=== PATIENT | female | born 1995 | race Caucasian/White ===

== ENCOUNTER 2021-12-24 23:13 | Emergency (ER) | payer OTHER, SELFPAY ==
[2021-12-24 23:45] VITALS: BP 156/92; PULSE 101; RESP 16; TEMP 37.1; O2SAT 96; BMI 52.9
[2021-12-25 01:53] LABS: Appearance Urine HAZY; Color Urine STRAW; Glucose Urine UA >=1000 MG/DL (NEG); Leukocyte Esterase Urine TRACE (NEG); Nitrite Urine NEG (NEG); PH 5.5 (5.0-8.0); Specific Gravity - Urine 1.015 (1.005-1.025); UACC Culture Trigger NO; Urine Blood 1+ (NEG); Urine Ketones 15 MG/DL (NEG); Urine Protein NEG (NEG-TRACE)
[2021-12-25 01:55] LABS: UPreg QC Valid YES; Urine Pregnancy NEGATIVE (NEGATIVE)
[2021-12-25 01:59] LABS: Bacteria Urine 2+ /LPF; RBC Urine 0-2 /HPF (0); Squamous Epithelial Cell Urine 2+ /LPF; UACC CULT YES
[2021-12-25 02:00] LABS: Calcium Phosphate Crystals Ur TRACE /LPF
[2021-12-25] MEDS: Fluconazole 150 MG TABLET PO (02:31)
[2021-12-25] MEDS: Lidocaine HCl 2 % Urojet 10 ML JEL.PF.APP TOPICAL (02:31)
[2021-12-25 02:35] LABS: MANUAL DIFF FLAG NO
[2021-12-25 02:36] VITALS: BP 152/91; PULSE 97; RESP 16; O2SAT 97
[2021-12-25 02:36] LABS: Basophils Percent Auto 0.4 % (0-2); Eosinophils Absolute Auto 0.2 X10*3/uL (0.0-0.4); Eosinophils Percent Auto 2.3 % (0-4); Hematocrit 45.6 % (37.0-47.0); Hemoglobin 15.8 g/dl (12.0-16.0); Imm Gran Abs Auto 0.05 X10*3/uL (0.00-0.03); Imm Gran Pct Auto 0.6 % (0.0-0.4); Lymphocytes Absolute Auto 2.4 X10*3/uL (1.2-4.9); Lymphocytes Percent Auto 31.2 % (20-40); Mean Corpuscular HGB Conc 34.6 g/dl (31.0-35.0); Mean Corpuscular Hemoglobin 28.8 pg (27.0-33.0); Mean Corpuscular Volume 83.1 fL (80.0-98.0); Monocytes Absolute Auto 0.7 X10*3/uL (0.1-1.2); Monocytes Percent Auto 8.8 % (2-11); Neutrophils Absolute Auto 4.4 x10*3/uL (2.0-8.3); Neutrophils Percent Auto 56.7 % (45-73); Platelet Count 231 X10*3/uL (160-400); Red Blood Count 5.49 X10*6/uL (4.20-5.50); Red Cell Distribution Width 12.5 % (11.0-16.0); White Blood Count 7.8 X10*3/uL (4.8-10.8)
[2021-12-25 02:42] LABS: Acetone, serum QL Negative (Negative)
[2021-12-25 02:56] LABS: Alanine Aminotransferase 46 U/L (0-31); Albumin Level 4.4 g/dL (3.5-5.0); Alkaline Phosphatase 130 U/L (39-117); Anion Gap 14 (12-20); Aspartate Amino Transferase 43 U/L (5-31); Bilirubin Total 0.5 mg/dL (0.0-1.0); Blood Urea Nitrogen 10 mg/dL (9-16); Calcium 10.3 mg/dL (8.4-10.2); Carbon Dioxide 26 mmol/L (22-29); Chloride 98 mmol/L (96-108); Creatinine Clr Calc Pharmacy 109.1; Estimated Glomerular Filt Rate > 60; Glucose Random 386 mg/dL (60-115); Potassium 4.2 mmol/L (3.3-5.1); Sodium 134 mmol/L (135-145); Total Protein 8.6 g/dL (6.5-8.0)
--- NOTE | 2021-12-25 03:06 | ED.FEMALEGU ---
HPI - Female Genitourinary General Chief complaint: Urogenital-Female Stated complaint: vaginal pain, burning sensation Time Seen by Provider: 12/24/21 23:55 Source: patient Mode of arrival: ambulatory History of Present Illness HPI Narrative: 26-year-old female without significant past medical history presents with 1 week of increasing itching and discharge from her ?private areas?. Patient states that now it lepe badly when she urinates and her entire gentle area itches and is very painful. Related Data Previous Rx's Medication Instructions Recorded fluconazole 150 mg tablet 150 mg PO Q3D #2 tab 12/25/21 (Diflucan) metformin 500 mg tablet 500 mg PO DAILY #30 tab 12/25/21 Allergies Allergy/AdvReac Type Severity Reaction Status Date / Time amoxicillin [AMOXICILLIN] Allergy Unknown RASH Verified 09/13/20 15:38 Sulfa (Sulfonamide Allergy Unknown angeioedema/hives, Unverified 11/25/19 00:00 Antibiotics) rash sulfamethoxazole Allergy Unknown HIVES, Verified 09/13/20 15:39 [From BACTRIM] angioadema trimethoprim [From BACTRIM] Allergy Unknown HIVES, Verified 09/13/20 15:39 angioedema Review of Systems Review of Systems: Pertinent positives and negatives as stated in HPI 10 point review of systems is otherwise negative. PMFSH Past Medical History Source: nursing notes reviewed Surgical History No pertinent past surgical history Family History Family History Father No problems noted. Mother Diabetes mellitus Brother No problems noted. Brother No problems noted. Brother No problems noted. Brother No problems noted. Sister No problems noted. Social History Social History Advance Directives: No Advance Directives Information Provided: Yes Physical Exam Vital Signs: Vital Signs: Last Vital Signs Temp 98.7 F 12/24/21 23:45 Pulse 97 12/25/21 02:36 Resp 16 12/25/21 02:36 BP 152/91 H 12/25/21 02:36 Pulse Ox 97 12/25/21 02:36 BMI result Body Mass Index 52.9 VITAL SIGNS: Reviewed. GENERAL: Well developed, well nourished, hirsutism noted, in moderate distress. HEAD: Normocephalic/atraumatic EYES: PERRLA, EOMI EARS: Ext canals without abnormality OROPHARYNX: no oral lesions noted, posterior pharynx clear LUNGS: Normal breath sounds. SpO2<97> CARDIOVASCULAR: Regular rate and rhythm without noted murmurs ABDOMEN: Soft, non-tender, non-distended with bowel sounds. : Large amount of chunky white discharge covering all labia and into the introitus, extends onto bilateral groin creases. MUSCULOSKELETAL: No tenderness, deformities, or effusions noted on gross inspection. EXTREMITIES: No cyanosis, clubbing or edema. SKIN: Inspection of the skin reveals no rashes NEUROLOGIC: Alert and oriented x 4. Strength and sensation to light touch were grossly intact x 4. Course Course Course Narrative: 26-year-old female with history and clinical presentation consistent with significant vaginal candidiasis raising concern for underlying diabetes and on POC is noted to be over 300. Lab work was drawn and on review of all investigations patient is noted to be hyperglycemic but not in DKA or HHS. She was provided with a dose of Diflucan here in the emergency room as well as being provided with topical lidocaine for pain control. She will be discharged with metformin as well as remaining course of Diflucan. MDM - Female Genitourinary Lab Data Result diagrams: 12/25/21 02:30 12/25/21 02:30 Labs: Lab Results 12/25/21 12/25/21 12/25/21 Range/Units 01:43 01:43 02:30 WBC 7.8 (4.8-10.8) X10*3/uL RBC 5.49 (4.20-5.50) X10*6/uL Hgb 15.8 (12.0-16.0) g/dl Hct 45.6 (37.0-47.0) % MCV 83.1 (80.0-98.0) fL MCH 28.8 (27.0-33.0) pg MCHC 34.6 (31.0-35.0) g/dl RDW 12.5 (11.0-16.0) % Plt Count 231 (160-400) X10*3/uL MPV 13.0 H (9.4-12.3) fL Immature Gran % (Auto) 0.6 H (0.0-0.4) % Neut % (Auto) 56.7 (45-73) % Lymph % (Auto) 31.2 (20-40) % [place] % (Auto) 8.8 (2-11) % Eos % (Auto) 2.3 (0-4) % Baso % (Auto) 0.4 (0-2) % Lymph # (Auto) 2.4 (1.2-4.9) X10*3/uL [place] # (Auto) 0.7 (0.1-1.2) X10*3/uL Eos # (Auto) 0.2 (0.0-0.4) X10*3/uL Baso # (Auto) 0.0 (0.0-0.2) X10*3/uL Abs Immat Gran (auto) 0.05 H (0.00-0.03) X10*3/uL Absolute Neuts (auto) 4.4 (2.0-8.3) x10*3/uL Absolute Nucleated RBC 0.000 (0.0-0.012) X10*3/uL Nucleated RBC % (auto) 0.0 (0.0-0.2) /100WBC Sodium (135-145) mmol/L Potassium (3.3-5.1) mmol/L Chloride (96-108) mmol/L Carbon Dioxide (22-29) mmol/L Anion Gap (12-20) BUN (9-16) mg/dL Creatinine (0.5-1.4) mg/dL Estim Creat Clear Calc Estimated GFR Random Glucose (60-115) mg/dL Calcium (8.4-10.2) mg/dL Total Bilirubin (0.0-1.0) mg/dL AST (5-31) U/L ALT (0-31) U/L Alkaline Phosphatase (39-117) U/L Total Protein (6.5-8.0) g/dL Albumin (3.5-5.0) g/dL Urine Color STRAW Urine Appearance HAZY Urine pH 5.5 (5.0-8.0) Ur Specific [place] 1.015 (1.005-1.025) Urine Protein NEG (NEG-TRACE) MG/DL Urine Glucose (UA) >=1000 H (NEG) MG/DL Urine Ketones 15 (NEG) MG/DL Urine Blood 1+ H (NEG) Urine Nitrite NEG (NEG) Ur Leukocyte Esterase TRACE H (NEG) Urine RBC 0-2 (0) /HPF Urine WBC 15-29 H (0-4) /HPF Ur Squamous Epith Cells 2+ /LPF Calcium Phosphate Cryst TRACE /LPF Urine Bacteria 2+ /LPF Urine Yeast 1+ /HPF Urine Test NEGATIVE (NEGATIVE) Acetone, Qual (Negative) 12/25/21 12/25/21 Range/Units 02:30 02:30 WBC (4.8-10.8) X10*3/uL RBC (4.20-5.50) X10*6/uL Hgb (12.0-16.0) g/dl Hct (37.0-47.0) % MCV (80.0-98.0) fL MCH (27.0-33.0) pg MCHC (31.0-35.0) g/dl RDW (11.0-16.0) % Plt Count (160-400) X10*3/uL MPV (9.4-12.3) fL Immature Gran % (Auto) (0.0-0.4) % Neut % (Auto) (45-73) % Lymph % (Auto) (20-40) % [place] % (Auto) (2-11) % Eos % (Auto) (0-4) % Baso % (Auto) (0-2) % Lymph # (Auto) (1.2-4.9) X10*3/uL [place] # (Auto) (0.1-1.2) X10*3/uL Eos # (Auto) (0.0-0.4) X10*3/uL Baso # (Auto) (0.0-0.2) X10*3/uL Abs Immat Gran (auto) (0.00-0.03) X10*3/uL Absolute Neuts (auto) (2.0-8.3) x10*3/uL Absolute Nucleated RBC (0.0-0.012) X10*3/uL Nucleated RBC % (auto) (0.0-0.2) /100WBC Sodium 134 L (135-145) mmol/L Potassium 4.2 (3.3-5.1) mmol/L Chloride 98 (96-108) mmol/L Carbon Dioxide 26 (22-29) mmol/L Anion Gap 14 (12-20) BUN 10 (9-16) mg/dL Creatinine 0.98 (0.5-1.4) mg/dL Estim Creat Clear Calc 109.1 Estimated GFR > 60 Random Glucose 386 H* (60-115) mg/dL Calcium 10.3 H (8.4-10.2) mg/dL Total Bilirubin 0.5 (0.0-1.0) mg/dL AST 43 H (5-31) U/L ALT 46 H (0-31) U/L Alkaline Phosphatase 130 H (39-117) U/L Total Protein 8.6 H (6.5-8.0) g/dL Albumin 4.4 (3.5-5.0) g/dL Urine Color Urine Appearance Urine pH (5.0-8.0) Ur Specific [place] (1.005-1.025) Urine Protein (NEG-TRACE) MG/DL Urine Glucose (UA) (NEG) MG/DL Urine Ketones (NEG) MG/DL Urine Blood (NEG) Urine Nitrite (NEG) Ur Leukocyte Esterase (NEG) Urine RBC (0) /HPF Urine WBC (0-4) /HPF Ur Squamous Epith Cells /LPF Calcium Phosphate Cryst /LPF Urine Bacteria /LPF Urine Yeast /HPF Urine Test (NEGATIVE) Acetone, Qual Negative (Negative) Discharge Plan Discharge Clinical Impression: Candidiasis of vulva and vagina, Hyperglycemia, Diabetes mellitus, new onset Patient Disposition: Home, Self-Care Instructions: Bacterial Vaginosis (ED), Type 2 Diabetes in Adults: New Diagnosis (ED), Yeast Infection (ED), Diabetes and Nutrition (ED), Diabetes and Exercise (ED) Additional Instructions: 1. You have diabetes and should set up an appointment with a primary care provider as soon as possible for continued care. 2. You have been started on a medication for your diabetes as well as being provided with additional information regarding diabetes. 3. A medication has been sent to your pharmacy for continued treatment of your yeast infection. You should combine this with [id number] Monistat, that comes as a cream, and use as directed(recommend 7 day version). Prescriptions: New fluconazole [Diflucan] 150 mg tablet 150 mg PO Q3D Qty: 2 0RF metformin 500 mg tablet 500 mg PO DAILY Qty: 30 0RF Stand Alone Forms: Work/School Release
[2021-12-25 03:19] LABS: CT PCR DETECTED (Not Detect.); NG PCR NOT DETECTED (Not Detect.)
[2021-12-25 06:37] LABS: Glucose, Whole Blood 372 mg/dL (60-115)
[2021-12-25 07:41] LABS: Hemoglobin A1c % > 14.0 %
== END 2021-12-25 03:33 | disposition home or self-care (01) ==
PROVIDERS: Emergency Provider Student in an Organized Health Care Education/Training Program
DX: B37.3 Candidiasis of vulva and vagina (principal); E11.65 Type 2 diabetes mellitus with hyperglycemia
CPT/HCPCS: 36415; 80053; 81001; 81025; 82009; 82947; 83036; 85025; 87086; 87491; 87591; 99282; 99283

== ENCOUNTER 2021-12-25 09:51 | Emergency (ER) | payer OTHER, SELFPAY ==
[2021-12-25 10:05] VITALS: BP 145/80; PULSE 114; RESP 18; TEMP 37; O2SAT 96; BMI 54.6
--- NOTE | 2021-12-25 10:30 | ED_ITS ---
HPI - Female Genitourinary General Chief complaint: General Medical Stated complaint: vaginal infection Time Seen by Provider: 12/25/21 10:08 Source: patient Mode of arrival: ambulatory Limitations: no limitations History of Present Illness HPI Narrative: dx with yeast vaginitis and new onset DM yesterday not in DKA - Rx metformin and diflucan but states she doesn't go to [facility] here asking for new Rx no other new complaints asking for short course pain medications MD elicited complaint: other (vaginal discharge, itching, pain) Pertinent past history: other (dx with yeast vaginitis yesterday ) Onset (ago): day(s) (2) Location of symptoms: external genitalia Severity: severe Quality of pain: burning and other (pruritic) Consistency: constant Vaginal discharge: white Vaginal bleeding: none Exacerbating factors: palpation Relieving factors: none Associated symptoms: denies other symptoms Treatment prior to arrival: none Related Data Previous Rx's Medication Instructions Recorded fluconazole 150 mg tablet 150 mg PO Q3D #2 tab 12/25/21 (Diflucan) hydrocodone 5 mg-acetaminophen 325 1 tab PO Q6H PRN #6 tab 12/25/21 mg tablet metformin 500 mg tablet 500 mg PO BID #60 tab 12/25/21 Allergies Allergy/AdvReac Type Severity Reaction Status Date / Time amoxicillin [AMOXICILLIN] Allergy Unknown RASH Verified 12/25/21 10:04 Sulfa (Sulfonamide Allergy Unknown angeioedema/hives, Verified 12/25/21 10:04 Antibiotics) rash sulfamethoxazole Allergy Unknown HIVES, Verified 12/25/21 10:04 [From BACTRIM] angioadema trimethoprim [From BACTRIM] Allergy Unknown HIVES, Verified 12/25/21 10:04 angioedema Review of Systems Review of Systems: Constitutional : No Fever, No Chills ENT/Mouth : No sore throat, No Rhinorrhea Eyes: No Eye Pain, No Redness Cardiovascular : No Chest Pain, No SOB Respiratory : No Cough, No Sputum, No Wheezing Gastrointestinal : no Nausea, No Vomiting, No Diarrhea, no abdominal pain, Genitourinary : no irregular bleeding, No Dysuria, No Urinary Frequency, no pelvic pain, pos vaginal discharge and itching Musculoskeletal : No Myalgias Skin : No rash Neuro : No Weakness, No Headache Psych : No Anxiety/Panic, No Depression Heme/Lymph: No bruising, No Lymphadenopathy Endocrine : No Polyuria, No Polydipsia All other systems reviewed and are negative [facility] Past Medical History Attestation statement: The following information was validated with the patient. Medical History Candidiasis of vulva and vagina Diabetes mellitus, new onset Hyperglycemia Surgical History No pertinent past surgical history Family History Family History Father No problems noted. Mother Diabetes mellitus Brother No problems noted. Brother No problems noted. Brother No problems noted. Brother No problems noted. Sister No problems noted. Social History Social History (Updated 12/25/21 @ 10:48 by Nayeli Orellana DO) Patient Tobacco Use Status: Never used Tobacco Advance Directives: No Advance Directives Information Provided: No Physical Exam Vital Signs: Vital Signs: Last Vital Signs Temp 98.6 F 12/25/21 10:05 Pulse 114 H 12/25/21 10:05 Resp 18 12/25/21 10:05 BP 145/80 H 12/25/21 10:05 Pulse Ox 96 12/25/21 10:05 BMI result Body Mass Index 54.6 Appearance: Alert. Oriented X3. No acute distress. Eyes: Pupils equal, round and reactive to light. ENT: Pharynx normal. Neck: Normal inspection. Neck supple. CVS: Normal heart rate and rhythm. Pulses normal. Respiratory: No respiratory distress. Breath sounds normal. Abdomen: Soft and nontender, hurts to sit on labia Skin: Skin warm and dry. Normal skin color. Normal skin turgor. Extremities: No lower extremity edema. Neuro: Oriented X 3. No motor deficit. No sensory deficit. MDM - Female Genitourinary MDM Narrative Medical decision making narrative: 26 yo female with hx of new onset DM and dx with yeast infection today at 3am. Did not fill Rx due to insurance issue wants new pharmacy - no new complaints, will give diflucan Rx, metformin BID discussed importance of PCP, short term pain medications given her reports that motrin and tylenol do not work. Stable for DC Discharge Plan Discharge Clinical Impression: Candidiasis of vulva and vagina, Diabetes mellitus, new onset, Hyperglycemia Patient Disposition: Home, Self-Care Instructions: Yeast Infection (ED), Diabetic Hyperglycemia (ED), Diabetes and Nutrition (ED), Diabetes and Exercise (ED) Additional Instructions: return to ED for any worsening symptoms or concerns you need to find a primary care doctor as soon as possible Prescriptions: New metformin 500 mg tablet 500 mg PO BID Qty: 60 1RF fluconazole [Diflucan] 150 mg tablet 150 mg PO Q3D Qty: 2 1RF Rx Instructions: may repeat second dose 72 hrs after first dose if symptoms persist hydrocodone-acetaminophen 5-325 mg tablet 1 tab PO Q6H PRN (Reason: pain) Qty: 6 0RF Rx Instructions: partial fill okay Discontinued fluconazole [Diflucan] 150 mg tablet 150 mg PO Q3D Qty: 2 0RF metformin 500 mg tablet 500 mg PO DAILY Qty: 30 0RF
--- NOTE | 2021-12-25 10:52 | PC.NURSE ---
PT BROUGHT IN FROM WAITING ROOM BY PROVIDER. EVALUATED BY DR YARBROUGH. PLAN IS FOR PHARMACY CHANGE AND ADDITIONAL MEDICATIONS PT AWARE AND AGREEABLE TO ED CARE PLAN. MOTHER IS WITH PATIENT.
== END 2021-12-25 10:55 | disposition home or self-care (01) ==
PROVIDERS: Emergency Provider Emergency Medicine
DX: B37.3 Candidiasis of vulva and vagina (principal); E11.65 Type 2 diabetes mellitus with hyperglycemia
CPT/HCPCS: 99282

== ENCOUNTER 2022-05-12 17:35 | Emergency (ER) | payer OTHER, SELFPAY ==
--- NOTE | ~2022-05-12 | US_ITS ---
EXAMINATION: US PELVIS CLINICAL INFORMATION: Lower abdominal pain COMPARISON: CT 05/12/2022 TECHNIQUE: Ultrasound of the pelvis is performed using both transabdominal and transvaginal transducers along with Doppler. Transvaginal imaging is performed due to inadequate visualization transabdominally. FINDINGS: The uterus measures 8.6 in meters in length and 2.1 x 3.4 cm in AP and transverse dimensions. Endometrial stripe measures 0.6 in meters in thickness. Evaluation of the adnexa is limited due to patient body habitus. The right ovary is identified on transabdominal imaging only, measuring 3.4 x 2.8 x 3.2 cm (volume 16 mL). Venous flow is identified in the right ovary, though arterial flow is not definitively detected. The left ovary measures 4.2 x 2.6 x 2.3 cm (volume 13 mL). There is a 2.2 x 2.5 x 2.3 cm cyst along the periphery of the ovary. Arterial and venous flow is detected in the left ovary. No free fluid is seen. US/US pelvic ovarian doppler IMPRESSION: 1. Limited evaluation due to patient body habitus. 2. Prominent appearance of both ovaries. Although venous flow is detected in the right ovary, arterial flow is not clearly identified; this could be due to the limited technical performance of the exam rather than true absence of flow that occurs with ovarian torsion. 3. Cyst along the margin of the left ovary measuring up to 2.5 cm, possibly a corpus luteal cyst. This critical result was discussed with Dr. Crawford on 05/13/2022 2:29 AM, and it was ascertained that the content and urgency of the report was understood at the time of direct communication.
--- NOTE | ~2022-05-12 | US_ITS ---
EXAMINATION: US PELVIS CLINICAL INFORMATION: Lower abdominal pain COMPARISON: CT 05/12/2022 TECHNIQUE: Ultrasound of the pelvis is performed using both transabdominal and transvaginal transducers along with Doppler. Transvaginal imaging is performed due to inadequate visualization transabdominally. FINDINGS: The uterus measures 8.6 in meters in length and 2.1 x 3.4 cm in AP and transverse dimensions. Endometrial stripe measures 0.6 in meters in thickness. Evaluation of the adnexa is limited due to patient body habitus. The right ovary is identified on transabdominal imaging only, measuring 3.4 x 2.8 x 3.2 cm (volume 16 mL). Venous flow is identified in the right ovary, though arterial flow is not definitively detected. The left ovary measures 4.2 x 2.6 x 2.3 cm (volume 13 mL). There is a 2.2 x 2.5 x 2.3 cm cyst along the periphery of the ovary. Arterial and venous flow is detected in the left ovary. No free fluid is seen. US/US pelvic and transvaginal IMPRESSION: 1. Limited evaluation due to patient body habitus. 2. Prominent appearance of both ovaries. Although venous flow is detected in the right ovary, arterial flow is not clearly identified; this could be due to the limited technical performance of the exam rather than true absence of flow that occurs with ovarian torsion. 3. Cyst along the margin of the left ovary measuring up to 2.5 cm, possibly a corpus luteal cyst. This critical result was discussed with Dr. Crawford on 05/13/2022 2:29 AM, and it was ascertained that the content and urgency of the report was understood at the time of direct communication.
--- NOTE | ~2022-05-12 | CT_ITS ---
EXAMINATION: CT ABDOMEN AND PELVIS WITH CONTRAST CLINICAL INFORMATION: Left lower quadrant pain COMPARISON: 02/23/2019 TECHNIQUE: Multidetector volumetric images were obtained from the superior aspect of the liver through the pubic symphysis following administration 85 mL of Omnipaque 350 intravenous contrast. Sagittal and coronal reformatted images were obtained on the technologist's workstation. Oral contrast: No This CT examination was performed using dose optimization techniques as appropriate, variously including the following: *Automated exposure control *Adjustment of mA and/or kV according to patient size (this includes techniques or standardized protocols for targeted exams where dose is matched to indication/reason for exam; i.e. extremities or head) *Use of iterative reconstruction technique DLP: 1509 mGy-cm FINDINGS: LUNG BASES: The visualized lung bases are unremarkable. LIVER, GALLBLADDER, AND BILIARY TREE: The liver demonstrates hypoattenuation consistent with steatosis. No intrahepatic biliary ductal dilatation. The gallbladder is unremarkable with no evidence of radiopaque gallstones, gallbladder wall thickening, or obvious pericholecystic inflammatory changes. PANCREAS: Unremarkable. SPLEEN: Unremarkable. ADRENAL GLANDS: There is a 1.1 cm left adrenal nodule which had the density of a lipid rich adenoma on the prior noncontrast exam. Right adrenal gland is unremarkable. KIDNEYS AND URETERS: The kidneys are normal in size, shape, and attenuation. No hydronephrosis, hydroureter, or calculi seen. No perinephric stranding. BLADDER: Nearly empty and not adequately evaluated. GASTROINTESTINAL TRACT: No evidence of bowel obstruction or significant wall thickening. The appendix is unremarkable. No free fluid or free air is seen. ABDOMINAL WALL: No significant hernia is appreciated. LYMPH NODES: Normal. VASCULAR: Unremarkable. PELVIC VISCERA: Bilateral ovaries are mildly prominent. OSSEOUS STRUCTURES: Unremarkable. CT/CT abdomen pelvis w IV con IMPRESSION: 1. Mild prominence of the bilateral ovaries, of uncertain clinical significance. If there is clinical concern for acute ovarian pathology, this may be further assessed with pelvic ultrasound. 2. Hepatic steatosis.
[2022-05-12 18:05] VITALS: BP 151/99; PULSE 100; RESP 18; TEMP 36.6; O2SAT 98; BMI 54.0
[2022-05-12 18:20] LABS: MANUAL DIFF FLAG NO
[2022-05-12 18:22] LABS: Basophils Percent Auto 0.7 % (0-2); Eosinophils Absolute Auto 0.2 X10*3/uL (0.0-0.4); Eosinophils Percent Auto 2.8 % (0-4); Hematocrit 41.5 % (37.0-47.0); Hemoglobin 14.7 g/dl (12.0-16.0); Imm Gran Abs Auto 0.01 X10*3/uL (0.00-0.03); Imm Gran Pct Auto 0.2 % (0.0-0.4); Lymphocytes Absolute Auto 2.6 X10*3/uL (1.2-4.9); Lymphocytes Percent Auto 45.6 % (20-40); Mean Corpuscular HGB Conc 35.4 g/dl (31.0-35.0); Mean Corpuscular Hemoglobin 29.8 pg (27.0-33.0); Mean Platelet Volume 12.3 fL (9.4-12.3); Monocytes Absolute Auto 0.5 X10*3/uL (0.1-1.2); Monocytes Percent Auto 8.7 % (2-11); Neutrophils Absolute Auto 2.4 x10*3/uL (2.0-8.3); Platelet Count 209 X10*3/uL (160-400); Red Blood Count 4.94 X10*6/uL (4.20-5.50); Red Cell Distribution Width 12.4 % (11.0-16.0); White Blood Count 5.6 X10*3/uL (4.8-10.8)
[2022-05-12 18:38] LABS: Alanine Aminotransferase 88 U/L (0-31); Albumin Level 4.4 g/dL (3.5-5.0); Alkaline Phosphatase 77 U/L (39-117); Anion Gap 18 (12-20); Aspartate Amino Transferase 84 U/L (5-31); Bilirubin Total 0.7 mg/dL (0.0-1.0); Blood Urea Nitrogen 11 mg/dL (9-16); Calcium 9.6 mg/dL (8.4-10.2); Carbon Dioxide 24 mmol/L (22-29); Chloride 99 mmol/L (96-108); Estimated Glomerular Filt Rate > 60; Glucose Random 185 mg/dL (60-115); Potassium 3.9 mmol/L (3.3-5.1); Sodium 137 mmol/L (135-145); Total Protein 8.1 g/dL (6.5-8.0)
[2022-05-12 19:11] LABS: Appearance Urine Cloudy; Color Urine Yellow; Glucose Urine UA 250 mg/dL (Negative); Leukocyte Esterase Urine Small (1+) (Negative); Nitrite Urine Negative (Negative); Specific Gravity - Urine >= 1.030 (1.005-1.025); UMIC TRIGGER UACC YES; Urine Blood Negative (Negative); Urine Ketones Trace mg/dL (Negative); Urine Protein 30 (1+) mg/dL (Neg-Trace)
[2022-05-12 19:12] LABS: UPreg QC Valid YES; Urine Pregnancy NEGATIVE (NEGATIVE)
[2022-05-12 19:30] LABS: Bacteria Urine 3+ (None Seen); UACC Culture Trigger YES; WBC Urine 21-50 /HPF (0-5)
--- NOTE | 2022-05-12 21:26 | ED.ABDPAIN ---
HPI - Abdominal Pain General Chief Complaint: Abdominal Pain Stated Complaint: left side abdominal pain Time Seen by Provider: 05/12/22 21:17 Source: patient Mode of arrival: ambulatory Limitations: no limitations History of Present Illness HPI narrative: 27-year-old female with history of diabetes presents to the emergency department complaining of left lower quadrant pain x 1 day. Patient states the pain is sharp and has gotten worse since last night. She states the pain is worse with lying down. patient has tried taking Tylenol with minimal relief of symptoms. Patient states the pain radiates up her left back. Patient rates her current pain is 7/10. Patient denies chest pain, shortness of breath, dysuria, weakness, nausea, vomiting, diarrhea, constipation. Additionally the patient states that her urine has been darker than usual as well as she has been urinating more frequently. Denies hematuria. Related Data Previous Rx's Medication Instructions Recorded hydrocodone 5 mg-acetaminophen 325 1 tab PO Q6H PRN pain #6 tabs 12/25/21 mg tablet metformin 500 mg tablet 500 mg PO BID #60 tabs 12/25/21 fluconazole 150 mg tablet 150 mg PO DAILY 7 days #7 tabs 12/27/21 (Diflucan) levofloxacin 250 mg tablet 250 mg PO ONCE 5 days #5 tabs 12/27/21 nitrofurantoin 100 mg PO BID 7 days #14 caps 05/13/22 monohydrate/macrocrystals 100 mg capsule (Macrobid) Allergies Allergy/AdvReac Type Severity Reaction Status Date / Time amoxicillin [AMOXICILLIN] Allergy Unknown RASH Verified 12/27/21 10:46 Sulfa (Sulfonamide Allergy Unknown angeioedema/hives, Verified 12/27/21 10:46 Antibiotics) rash sulfamethoxazole Allergy Unknown HIVES, Verified 12/27/21 10:46 [From BACTRIM] angioadema trimethoprim [From BACTRIM] Allergy Unknown HIVES, Verified 12/27/21 10:46 angioedema Review of Systems Review of Systems Constitutional : No Weight loss, No Fever, No Chills, No Fatigue, No Malaise ENT/Mouth : No sore throat, No Rhinorrhea Eyes: No Eye Pain, No Swelling, No Redness Cardiovascular : No Chest Pain, No SOB, No Dyspnea on Exertion, No Orthopnea, No Edema, No Palpitations Respiratory : No Cough, No Sputum, No Wheezing Gastrointestinal : No Nausea, No Vomiting, No Diarrhea, No Constipation, + abdominal Pain, No Hematochezia, No Melena Genitourinary : No Dysuria, No Urinary Frequency, No Hematuria, Musculoskeletal : No joint pain, No Myalgias, No Joint Swelling Skin : No Skin Lesions, No rash Neuro : No Weakness, No Numbness, No Dizziness, No Headache Psych : No Anxiety/Panic, No Depression All other systems reviewed and are negative Yes all other systems are reviewed and are negative [facility] Past Medical History Attestation statement: The following information was validated with the patient. Source: old records reviewed Medical History Candidiasis of vulva and vagina Diabetes mellitus, new onset Hyperglycemia Surgical History No pertinent past surgical history Family History Family History Father No problems noted. Mother Diabetes mellitus Brother No problems noted. Brother No problems noted. Brother No problems noted. Brother No problems noted. Sister No problems noted. Social History Social History Patient Tobacco Use Status: Never used Tobacco Advance Directives: No Advance Directives Information Provided: No Physical Exam ED Vital Signs: Vital Signs - 24 hr 05/12/22 18:05 Temperature 97.8 F Pulse Rate 100 Respiratory Rate 18 Blood Pressure 151/99 H Pulse Oximetry 98 Oxygen Delivery Method Room Air BMI result Body Mass Index 54.0 vss Appearance: Alert.? Oriented X3.? No acute distress.? Patient appears come Head: Normocephalic, atraumatic, no step-offs or deformities Eyes: Pupils equal, round and reactive to light.? ENT: Pharynx normal. Neck: Normal inspection.? Neck supple.? CVS: Normal heart rate and rhythm.? Pulses normal.? Respiratory: No respiratory distress.? Breath sounds normal.? Abdomen: Soft and + LLQ pain on palpation.?negative CVA tenderness bilaterally. Negative Rovsings sign. Skin: Skin warm and dry.? Normal skin color.? Normal skin turgor.? Extremities: No lower extremity edema.? No calf ttp. 5/5 strength to bilateral upper and lower extremities Neuro: Oriented X 3.? No motor deficit.? No sensory deficit. CN 2-12 intact Course Reevaluation(s) Reevaluation #1: CBC appears to be around patient's baseline. Chemistry with no acute findings. UA with infection marobid will be given at this time. CT pending. Upon re-evaluation patient feeling better, reports improvement in pain after Toradol. Time: 00:11 Reevaluation #2: CT of the abdomen and pelvis with mild prominence of bilateral ovaries. Therefore ultrasound of bilateral ovaries will be ordered to rule out torsion although history and physical examination with low suspicious of this. Hepatic steatosis is noted. Time: 00:17 Reevaluation #3: Sign out to Dr. Crawford pending US. Patient will likely be DC home if US is negative. Time: 00:23 MDM - Abdominal Pain MDM Narrative Medical decision making narrative: 2124 27 year old F presents w/ sudden onset LLQ pain X1 day PE with LLQ pain on palpation. Negative CVA tenderness. Patient appears comfortable Concerns for diverticulitis. Will rule out UTI. Unlikley acute abdomen, pylo, kidney stones, appendicitis, cholecysitis, torsion, ectopic Plan- labs, urine, imaging. Medical Records Attestation: I reviewed the patient's medical records. Lab Data Attestation: I reviewed the patient's lab results. Result diagrams: 05/12/22 18:15 05/12/22 18:15 Labs: Lab Results 05/12/22 05/12/22 05/12/22 Range/Units 18:15 18:15 18:36 WBC 5.6 (4.8-10.8) X10*3/uL RBC 4.94 (4.20-5.50) X10*6/uL Hgb 14.7 (12.0-16.0) g/dl Hct 41.5 (37.0-47.0) % MCV 84.0 (80.0-98.0) fL MCH 29.8 (27.0-33.0) pg MCHC 35.4 H (31.0-35.0) g/dl RDW 12.4 (11.0-16.0) % Plt Count 209 (160-400) X10*3/uL MPV 12.3 (9.4-12.3) fL Immature Gran % (Auto) 0.2 (0.0-0.4) % Neut % (Auto) 42.0 L (45-73) % Lymph % (Auto) 45.6 H (20-40) % [place] % (Auto) 8.7 (2-11) % Eos % (Auto) 2.8 (0-4) % Baso % (Auto) 0.7 (0-2) % Lymph # (Auto) 2.6 (1.2-4.9) X10*3/uL [place] # (Auto) 0.5 (0.1-1.2) X10*3/uL Eos # (Auto) 0.2 (0.0-0.4) X10*3/uL Baso # (Auto) 0.0 (0.0-0.2) X10*3/uL Abs Immat Gran (auto) 0.01 (0.00-0.03) X10*3/uL Absolute Neuts (auto) 2.4 (2.0-8.3) x10*3/uL Absolute Nucleated RBC 0.000 (0.0-0.012) X10*3/uL Nucleated RBC % (auto) 0.0 (0.0-0.2) /100WBC Sodium 137 (135-145) mmol/L Potassium 3.9 (3.3-5.1) mmol/L Chloride 99 (96-108) mmol/L Carbon Dioxide 24 (22-29) mmol/L Anion Gap 18 (12-20) BUN 11 (9-16) mg/dL Creatinine 0.79 (0.5-1.4) mg/dL Estim Creat Clear Calc 136.0 Estimated GFR > 60 Random Glucose 185 H (60-115) mg/dL Calcium 9.6 D (8.4-10.2) mg/dL Total Bilirubin 0.7 (0.0-1.0) mg/dL AST 84 H (5-31) U/L ALT 88 H (0-31) U/L Alkaline Phosphatase 77 D (39-117) U/L Total Protein 8.1 H (6.5-8.0) g/dL Albumin 4.4 (3.5-5.0) g/dL Beta HCG, Quant < 2 mIU/mL Urine Color Yellow Urine Appearance Cloudy Urine pH 7.0 (5.0-9.0) Ur Specific [place] >= 1.030 H (1.005-1.025) Urine Protein 30 (1+) H (Neg-Trace) mg/dL Urine Glucose (UA) 250 H (Negative) mg/dL Urine Ketones Trace (Negative) mg/dL Urine Blood Negative (Negative) Urine Nitrite Negative (Negative) Ur Leukocyte Esterase Small (1+) H (Negative) Urine RBC 3-5 H (0-2) /HPF Urine WBC 21-50 H (0-5) /HPF Ur Squamous Epith Cells 6-10 (0-2) /HPF Urine Bacteria 3+ (None Seen) Hyaline Casts 3-5 (0-2) /LPF Urine Test (NEGATIVE) 05/12/22 Range/Units 18:36 WBC (4.8-10.8) X10*3/uL RBC (4.20-5.50) X10*6/uL Hgb (12.0-16.0) g/dl Hct (37.0-47.0) % MCV (80.0-98.0) fL MCH (27.0-33.0) pg MCHC (31.0-35.0) g/dl RDW (11.0-16.0) % Plt Count (160-400) X10*3/uL MPV (9.4-12.3) fL Immature Gran % (Auto) (0.0-0.4) % Neut % (Auto) (45-73) % Lymph % (Auto) (20-40) % [place] % (Auto) (2-11) % Eos % (Auto) (0-4) % Baso % (Auto) (0-2) % Lymph # (Auto) (1.2-4.9) X10*3/uL [place] # (Auto) (0.1-1.2) X10*3/uL Eos # (Auto) (0.0-0.4) X10*3/uL Baso # (Auto) (0.0-0.2) X10*3/uL Abs Immat Gran (auto) (0.00-0.03) X10*3/uL Absolute Neuts (auto) (2.0-8.3) x10*3/uL Absolute Nucleated RBC (0.0-0.012) X10*3/uL Nucleated RBC % (auto) (0.0-0.2) /100WBC Sodium (135-145) mmol/L Potassium (3.3-5.1) mmol/L Chloride (96-108) mmol/L Carbon Dioxide (22-29) mmol/L Anion Gap (12-20) BUN (9-16) mg/dL Creatinine (0.5-1.4) mg/dL Estim Creat Clear Calc Estimated GFR Random Glucose (60-115) mg/dL Calcium (8.4-10.2) mg/dL Total Bilirubin (0.0-1.0) mg/dL AST (5-31) U/L ALT (0-31) U/L Alkaline Phosphatase (39-117) U/L Total Protein (6.5-8.0) g/dL Albumin (3.5-5.0) g/dL Beta HCG, Quant mIU/mL Urine Color Urine Appearance Urine pH (5.0-9.0) Ur Specific [place] (1.005-1.025) Urine Protein (Neg-Trace) mg/dL Urine Glucose (UA) (Negative) mg/dL Urine Ketones (Negative) mg/dL Urine Blood (Negative) Urine Nitrite (Negative) Ur Leukocyte Esterase (Negative) Urine RBC (0-2) /HPF Urine WBC (0-5) /HPF Ur Squamous Epith Cells (0-2) /HPF Urine Bacteria (None Seen) Hyaline Casts (0-2) /LPF Urine Test NEGATIVE (NEGATIVE) Critical Care Time Critical Care Time Critical Care Time: No Discharge Plan Discharge Clinical Impression: Abdominal pain, UTI (urinary tract infection) Patient Disposition: Still a Patient Instructions: Urinary Tract Infection in Women (ED), Abdominal Pain (ED), Urinary Tract Infection in Older Adults (ED) Additional Instructions: Take your medications as prescribed. If you were prescribed antibiotics today, it is important that you take your medication to their entirety, do not skip any doses, do not finish them early. Follow-up with your primary care provider this week. Return to the emergency department with new or worsening symptoms. Such as fevers, chills, chest pain, shortness of breath, nausea, vomiting, dizziness, headache, vision changes, lethargy In case of emergency call 911 Prescriptions: New nitrofurantoin monohyd/m-cryst [Macrobid] 100 mg capsule 100 mg PO BID 7 Days Qty: 14 0RF Rx Instructions: must administer with a meal/food No Action metformin 500 mg tablet 500 mg PO BID Qty: 60 1RF hydrocodone-acetaminophen 5-325 mg tablet 1 tab PO Q6H PRN (Reason: pain) Qty: 6 0RF Rx Instructions: partial fill okay fluconazole [Diflucan] 150 mg tablet 150 mg PO DAILY 7 Days Qty: 7 0RF levofloxacin 250 mg tablet 250 mg PO ONCE 5 Days Qty: 5 0RF Referrals: Physician,Unknown J [Primary Care Provider] - 2 days
[2022-05-12 21:38] LABS: HCG Quantitative < 2 mIU/mL
[2022-05-12] MEDS: Nitrofurantoin Monohyd/M-Cryst 100 MG CAPSULE PO (22:12)
[2022-05-12] MEDS: 0.9 % Sodium Chloride 1,000 ML 999 ML IV (22:12)
[2022-05-12] MEDS: Ketorolac Tromethamine 15 MG/ML VIAL 30 MG IVPUSH (22:12)
[2022-05-12] MEDS: iohexoL 350 MG/ML 100 ML INFUS..BTL 85 ML IV (23:43)
[2022-05-13] MEDS: 0.9 % Sodium Chloride 1,000 ML 999 ML IV (01:04)
== END 2022-05-13 03:05 | disposition home or self-care (01) ==
PROVIDERS: Physician Assistant; Emergency Provider Internal Medicine
DX: R10.32 Left lower quadrant pain (principal); N39.0 Urinary tract infection, site not specified; Z79.899 Other long term (current) drug therapy; R60.0 Localized edema; R10.2 Pelvic and perineal pain
CPT/HCPCS: 36415; 74177; 76830; 76856; 80053; 81001; 81025; 84702; 85025; 87086; 93975; 96361; 96374; 99284; J1885; Q9967

== ENCOUNTER 2024-01-23 13:56 | Outpatient (AMB) | payer OTHER, SELFPAY ==
[2024-01-23 13:59] VITALS: BP 120/82; PULSE 97; O2SAT 98; BMI 49.7
--- NOTE | 2024-01-23 13:59 | A.OFFPC_ITS ---
Vital Signs 01/23/24 13:59 Height 5 ft 1 in Weight 263 lb BMI 49.7 BP 120/82 Blood Pressure Location Rt brachial Position Sitting Pulse 97 Pulse Source Pulse Oximeter Pulse Oximetry (%) 98 Oxygen Delivery Method Room Air Intake Visit Reasons: Annual PE/School PE ppwrk Allergies amoxicillin [AMOXICILLIN] Allergy (Unknown, Verified 01/23/24 14:00) RASH Sulfa (Sulfonamide Antibiotics) Allergy (Unknown, Verified 01/23/24 14:00) angeioedema/hives, rash sulfamethoxazole [From BACTRIM] Allergy (Unknown, Verified 01/23/24 14:00) HIVES, angioadema trimethoprim [From BACTRIM] Allergy (Unknown, Verified 01/23/24 14:00) HIVES, angioedema Medication List - Last Reconciled 01/23/24 by Dashawn Morales MD No Known Home Meds Tobacco use date assessed: 01/23/24 Dental Screening Dental Screen Date: 01/23/24 Did you have a dental visit in the last 12 months?: Yes Did you have a dental problem in the last 6 months where you did not have access to dental care?: No Was dental information given to patient?: Patient has dentist HPI Annual PE/School PE ppwrk HPI Details Patient is 28-year-old female came in today for establish care and physical exam Patient have a history of diabetes but taking no medication She needs a paperwork filled for school I do not have immunization record I have ordered labs, T spot ordered as well as vaccine titers She will return next week to go over the labs and to have her paperwork filled Patient also need OBGYN and have chronic acne problem for that she need a referral to Dermatology. Patient is morbidly obese need to lose weight we will talk about it further when I will see you next week. [facility] Medical History Diabetes mellitus, new onset Hyperglycemia Candidiasis of vulva and vagina Surgical History No pertinent past surgical history Family History Father No problems noted. Mother Diabetes mellitus Brother No problems noted. Brother No problems noted. Brother No problems noted. Brother No problems noted. Sister No problems noted. Social History Housing: Apartment Patient Tobacco Use Status: Never used Tobacco Current occupational status: employed Cognitive needs: No Hearing needs: No Vision needs: Yes Questionnaire PHQ-9 Over the last 2 weeks, how often have you been bothered by any of the following problems? 1. Little interest or pleasure in doing things: not at all 2. Feeling down, depressed, or hopeless: not at all 3. Trouble falling or staying asleep, or sleeping too much: not at all 4. Feeling tired or having little energy: not at all 5. Poor appetite or overeating: not at all 6. Feeling bad about yourself - or that you are a failure or have let yourself or your family down: several days 7. Trouble concentrating on things, such as reading the newspaper or watching television: several days 8. Moving or speaking so slowly that other people could have noticed. Or the opposite - being so fidgety or restless that you have been moving around a lot more than usual: not at all 9. Thoughts that you would be better off or of hurting yourself in some way: not at all Total score: 2 Depression Screening Interpretation: Negative Depression Screening Done: Yes 76207 - PHQ-9 Billing: Yes Source: Developed by Drs. Gregorio Castle, Lucille Pettit, Semaj Correa and colleagues, with an educational rita from [employer]. Thrive Questionnaire Date Thrive assessed: 01/23/24 I am a: Patient What is your living situation today?: I have a steady place to live Within the past 12 months, did you worry whether your food would run out before you got money to buy more?: Often true Do you have trouble paying for medicines?: No Do you have trouble getting transportation to medical appointments?: No Do you have trouble paying your heating and electricity bill?: No Do you have trouble taking care of your child, family member or friend?: No Do you have trouble with day-to-day activities such as bathing, preparing meals, shopping, managing finances, etc.?: No Are you currently unemployed and looking for a job?: No Are you interested in more education?: Yes Please select the resources that you would like help with: None Currently or been in a relationship where the following occur: I choose not to answer THRIVE Score: 1 AUDIT C Alcohol Use Questionnaire (AUDIT-C) 1. How often do you have a drink containing alcohol?: Never 3. How often do you have six or more drinks on one occasion?: Never Total Score: 0 Score Reviewed/Action Taken: No ARYA-7 AMB Questionnaire ARYA-7 Date ARYA - 7 assessed: 01/23/24 Feeling nervous, anxious, or on edge: 1 = Several days Not being able to stop or control worryin = Not at all Worrying too much about different things: 0 = Not at all Trouble relaxin = Several days Being so restless that it is hard to sit still: 0 = Not at all Becoming easily annoyed or irritable: 0 = Not at all Feeling afraid as if something awful might happen: 1 = Several days Total ARYA-7 score (0-4 normal; 5-9 mild; 10-14 moderate; 15-21 severe): 3 Source: Developed by Drs. Gregorio Castle, Lucille Pettit, Semaj Correa and colleagues, with an educational rita from [employer]. ARYA-7 Assessment Billing ARYA-7 Assessment Tool: ARYA-7 Assessment 44064 Review of Systems Const Denies chills, Denies fever(s) and Denies headache(s) Eyes Denies blurry vision ENT Denies headache(s), Denies nasal discharge, Denies nasal obstruction, Denies odynophagia and Denies sinus pain Card Denies chest pain at rest and Denies chest pain with activity Resp Denies cough and Denies hemoptysis GI Denies diarrhea, Denies odynophagia, Denies vomiting and Denies hematemesis Reports as per HPI Musc Denies abnormal gait Skin/Breast Reports as per HPI Neuro Denies Neuro-related abnormal movements, Denies Abnormal speech present, Denies abnormal gait, Denies headache(s) and Denies Sensory deficit (Neuro) Psych Denies mood swings and Denies paranoia Endo Reports as per HPI Olegario/Lymph Reports as per HPI Aller/Immun Reports as per HPI Physical exam (Primary Care) Vital Signs: Last Vital Signs Pulse 97 01/23/24 13:59 BP 120/82 01/23/24 13:59 Pulse Ox 98 01/23/24 13:59 Oxygen Delivery Method Room Air 01/23/24 13:59 BMI result Body Mass Index 49.7 Tobacco/Smoking Status: Tobacco use Status Tobacco use date assessed 01/23/24 01/23/24 14:03 Patient Tobacco Use Status Never used Tobacco 01/23/24 14:03 PHQ-9: PHQ-9 Score PHQ-9: Total score 2 01/23/24 14:32 Depression Screening Interpretation: Negative Thrive Assessment: Date of Thrive Assessment Date Thrive assessed 01/23/24 01/23/24 14:32 Currently or been in a relationship where the following occur: I choose not to answer Const General: cooperative, comfortable and no acute distress Orientation/consciousness: patient oriented x3 HENMT Head: Yes normocephalic and Yes atraumatic Eyes General: appearance normal, both eyes and all related structures Pupils: Equal, round and reactive pupils present EOM: EOMs intact bilaterally Neck Neck: Yes supple and No lymphadenopathy Thyroid: Thyroid normal Lymphatic: no lymphadenopathy noted Resp Effort & Inspection: normal respiratory effort and able to speak in complete sentences Auscultation: clear to auscultation bilaterally Cardio Heart sounds: S1 normal heart sound present and S2 normal heart sound present GI Palpation (GI): Soft to palpation and nontender Auscultation: normal bowel sounds General: Yes no CVA tenderness Back/Spine/Pelvis Back: no CVA tenderness Skin General skin exam: elasticity normal and turgor normal Neuro General: patient oriented x3 and gait normal Cranial nerves: Yes Equal, round and reactive pupils present Speech: No Abnormal speech present Sensory Exam: No Sensory deficit (Neuro) Coordination: tandem gait normal and Romberg test negative Extrem General: Yes normal exam except as noted and No edema Assessment and Plan Assessment & Plan (1) Encounter for general adult medical examination with abnormal findings: Code(s): Z00.01 - Encounter for general adult medical examination with abnormal findings (2) Morbid obesity due to excess calories: Code(s): E66.01 - Morbid (severe) obesity due to excess calories (3) Diabetes mellitus type 2, uncomplicated: Code(s): E11.9 - Type 2 diabetes mellitus without complications Qualifiers: Diabetes mellitus long-term insulin use: without medical terminologist use Qualified Code(s): E11.9 - Type 2 diabetes mellitus without complications (4) Immunizations incomplete: Code(s): Z28.39 - Other underimmunization status (5) Acne: Code(s): L70.9 - Acne, unspecified Qualifiers: Acne type: other acne Qualified Code(s): L70.8 - Other acne Plan Patient is 28-year-old female came in today for establish care and physical exam Patient have a history of diabetes but taking no medication She needs a paperwork filled for school I do not have immunization record I have ordered labs, T spot ordered as well as vaccine titers She will return next week to go over the labs and to have her paperwork filled Patient also need OBGYN and have chronic acne problem for that she need a referral to Dermatology. Patient is morbidly obese need to lose weight we will talk about it further when I will see you next week. Orders: Orders Hemoglobin A1c Today E11.9 - Type 2 diabetes mellitus without complications, E66.01 - Morbid (severe) obesity due to excess calories, Z00.01 - Encounter for general adult medical examination with abnormal findings TSH reflex Free T4 Today E11.9 - Type 2 diabetes mellitus without complications, E66.01 - Morbid (severe) obesity due to excess calories, Z00.01 - Encounter for general adult medical examination with abnormal findings Rubeola IgG (Measles) Today Z28.39 - Other underimmunization status Varicella IgG Antibody Today Z28.39 - Other underimmunization status Hepatitis B Surface Antibody Today Z28.39 - Other underimmunization status Complete Blood Count Auto Diff Today E11.9 - Type 2 diabetes mellitus without complications, E66.01 - Morbid (severe) obesity due to excess calories, Z00.01 - Encounter for general adult medical examination with abnormal findings Comprehensive Met. Panel Today E11.9 - Type 2 diabetes mellitus without complications, E66.01 - Morbid (severe) obesity due to excess calories, Z00.01 - Encounter for general adult medical examination with abnormal findings LDL Cholesterol Direct Today E11.9 - Type 2 diabetes mellitus without complications, E66.01 - Morbid (severe) obesity due to excess calories, Z00.01 - Encounter for general adult medical examination with abnormal findings Rubella IgG Antibody Today Z28.39 - Other underimmunization status T Spot TB Today Z28.39 - Other underimmunization status Tetanus Antitoxiod Antibody Today Z28.39 - Other underimmunization status Referrals [facility] Referral Z01.419 - Encounter for gynecological examination (general) (routine) without abnormal findings Dermatology Referral L70.9 - Acne, unspecified Coding Level of Care Code Est Pt Level 4 (85397) New Pt Prev Care 18-39yr(20070 Diagnoses Encounter for general adult medical examination with abnormal findings Z00.01 Morbid obesity due to excess calories E66.01 Type 2 diabetes mellitus without complication, without long-term current use of insulin E11.9 Diabetes mellitus medical terminologist insulin use: without long-term use Immunizations incomplete Z28.39 Other acne L70.8 Acne type: other acne Additional Codes ARYA-7 Assessment Billing - ARYA-7 Assessment Tool: ARYA-7 Assessment 54136 ([id number])
== END 2024-01-23 14:41 | disposition home or self-care (01) ==
LOC: HO.HMGC 13:56
PROVIDERS: PCP Internal Medicine; Visit Provider Internal Medicine
DX: Z00.00 Encounter for general adult medical examination without abnormal findings (principal); E66.01 Morbid (severe) obesity due to excess calories; E11.9 Type 2 diabetes mellitus without complications; Z68.42 Body mass index [BMI] 45.0-49.9, adult; Z28.39 Other underimmunization status; L70.8 Other acne
CPT/HCPCS: 99395

== ENCOUNTER 2024-11-11 14:44 | Emergency (ER) | payer OTHER, SELFPAY ==
--- NOTE | ~2024-11-11 | CT_ITS ---
CLINICAL HISTORY: lower abd pain, N V CT abdomen and pelvis with contrast Comparison: CT/UT - CT ABDOMEN PELVIS W IV CON - 05/12/22 23:49 EDT Findings: No consolidation or effusion. 17 mm left adrenal nodule without change, compatible with an adenoma. Hypodense liver parenchyma. Remaining abdominal organs are unremarkable. There are no calcified gallstones. No bowel obstruction, pneumoperitoneum, or pneumatosis. Poorly distended urinary bladder. Unremarkable pelvic contents. Normal appendix. The bones are intact. IMPRESSION: 1. No acute abdominal disease. 2. Fatty infiltration of the liver. This document has been electronically signed by: Lindsay Oreilly MD on 11/11/2024 19:25:40
[2024-11-11 15:19] VITALS: BP 139/94; PULSE 112; RESP 16; TEMP 37; O2SAT 97; BMI 48.5
--- NOTE | 2024-11-11 15:22 | ED_ITS ---
HPI - General Adult General Chief complaint: Abdominal Pain Stated complaint: abd and l arm pain Time Seen by Provider: 11/11/24 16:38 Source: patient, family, RN notes reviewed and old records reviewed Mode of arrival: ambulatory History of Present Illness ED Provider: Yaquelin Juarez PA-C [facility] narrative: 29-year-old female with a past medical history diabetes, obesity, presenting to the ED complaining of intermittent upper and lower abdominal pain and bilateral forearm pain x1 week. reports nausea and emesis x3 episodes over the past few weeks. Denies fever, chills, diarrhea / constipation, dysuria / hematuria. Denies arm injury/trauma, numbness, tingling, weakness. Grandmother reports patient has been increasingly depressed. Patient states she has been crying a lot secondary to pain, denies SI/ HI and would not like to speak with CARE team at this time. States she has outpatient resources. Related Data Previous Rx's ?Medication ?Instructions ?Recorded cefuroxime axetil 250 mg tablet 250 mg PO BID 7 days #14 tabs 11/11/24 Allergies Allergy/AdvReac Type Severity Reaction Status Date / Time amoxicillin [AMOXICILLIN] Allergy Unknown RASH Verified 11/11/24 15:23 Sulfa (Sulfonamide Allergy Unknown angeioedema/hives, Verified 11/11/24 15:23 Antibiotics) rash sulfamethoxazole Allergy Unknown HIVES, Verified 11/11/24 15:23 [From BACTRIM] angioadema trimethoprim [From BACTRIM] Allergy Unknown HIVES, Verified 11/11/24 15:23 angioedema Review of Systems 2 Review of Systems: Yes all other systems are reviewed and are negative Constitutional: Constitutional: Reports as per [facility] Past Medical History Attestation statement: The following information was validated with the patient. Source: old records reviewed Medical History Diabetes mellitus, new onset Hyperglycemia Candidiasis of vulva and vagina Surgical History No pertinent past surgical history Family History Family History Father No problems noted. Mother Diabetes mellitus Brother No problems noted. Brother No problems noted. Brother No problems noted. Brother No problems noted. Sister No problems noted. Social History Social History Housing: Apartment Patient Tobacco Use Status: Never used Tobacco Smoked in Last 30 Days: Yes Substance Use Type: Marijuana Substance Use Frequency: Socially Advance Directives: No Advance Directives Information Provided: No Current occupational status: employed Cognitive needs: No Hearing needs: No Vision needs: Yes Physical Exam ED Vital Signs: Vital Signs - 24 hr 11/11/24 15:19 11/11/24 17:30 Temperature 98.6 F 98.2 F Pulse Rate 112 H 97 Respiratory Rate 16 20 Blood Pressure 139/94 H 142/64 H Pulse Oximetry 97 98 Oxygen Delivery Method Room Air BMI result Body Mass Index 48.5 Const General: cooperative, healthy appearing and no acute distress Orientation/consciousness: patient oriented x3 Limitations: no limitations HENMT Head: Yes normal to inspection and Yes atraumatic Ears: hearing grossly normal bilaterally General nose exam: Normal external nose present Face and sinus: Yes normal facial exam Eyes General: appearance normal, both eyes and all related structures EOM: EOMs intact bilaterally Neck Neck: Yes normal visual inspection and Yes no meningeal signs Resp Effort & Inspection: normal respiratory effort and no respiratory distress Auscultation: clear to auscultation bilaterally Cardio Rate: regular rate Heart sounds: S1 normal heart sound present and S2 normal heart sound present GI Inspection: Yes normal to inspection Palpation (GI): Soft to palpation, Tenderness to palpation present (GI) in the LLQ and in the RLQ; with no rebound tenderness, no guarding and not rigid General: Yes no CVA tenderness Back/Spine/Pelvis Back: no CVA tenderness Skin Rashes: no rashes Wounds: no wounds Neuro General: patient oriented x3, tone normal and no meningeal signs Cranial nerves: Yes CN's II-XII intact bilaterally Gait exam (Neuro): Normal gait present Extrem Other: bilateral upper extremities without appreciable deformity. Nontender to palpation. No erythema /warmth, crepitus or rash. Compartments soft. Neurovascularly intact distally. General: Yes normal to inspection Course Course Course Narrative: This is a rapid medical exam performed by Desiree Brown NP: Additional HPI, ROS, PE not included below will be deferred to primary provider. Patient is a 29-year-old female presenting to the ED with complaint of abdominal pain and bilateral forearm pain. Patient states she has been crying due to pain, grandmother states that she feels patient is depressed. Patient denies this, denies SI/HI, states she does not need to speak with CARE team. Plan: labs, UA -1718-- No leukocytosis. AST/ ALT chronically elevated. - hCG negative. UA appears infected > patient given dose of IV Rocephin in the ED -1900-- ED care transferred to [facility] pending CTAP. Dispo per results Reevaluation(s) Reevaluation #1: Received patient in sign out pending results of CT A/P. No acute abnormalities noted. Patient updated on results and all questions answered. Patient stable for discharge home. Follow up with PCP. Return precautions discussed. Patient verbalized understanding of and agreement with plan. CT abdomen and pelvis with contrast Comparison: CT/MD - CT ABDOMEN PELVIS W IV CON - 05/12/22 23:49 EDT Findings: No consolidation or effusion. 17 mm left adrenal nodule without change, compatible with an adenoma. Hypodense liver parenchyma. Remaining abdominal organs are unremarkable. There are no calcified gallstones. No bowel obstruction, pneumoperitoneum, or pneumatosis. Poorly distended urinary bladder. Unremarkable pelvic contents. Normal appendix. The bones are intact. IMPRESSION: 1. No acute abdominal disease. 2. Fatty infiltration of the liver. Time: 19:39 Medications Administered Discontinued Medications Generic Name Dose Route Start Last Admin Trade Name Freq PRN Reason Stop Dose Admin Ceftriaxone Sodium 1 gm 11/11/24 17:20 11/11/24 17:30 Ceftriaxone Sodium 1 Gm Vial IVPUSH 11/11/24 17:21 1 gm ONCE ONE Administration Iohexol 100 ml 11/11/24 18:14 11/11/24 18:17 Iohexol 350 Mg/Ml 100 Ml Infus..Btl IV 11/11/24 18:15 100 ml ONCE ONE Administration Lorazepam 1 mg 11/11/24 17:35 11/11/24 17:39 Lorazepam 1 Mg Tablet PO 11/11/24 17:36 1 mg ONCE ONE Administration Medical Decision Making Medical Decision Making MDM Narrative: 29-year-old female with a past medical history diabetes, obesity, presenting to the ED complaining of intermittent upper and lower abdominal pain and bilateral forearm pain x1 week. On exam mildly tachycardic, NAD, nontoxic appearing, physical exam as noted above with RLQ and LLQ abdominal tenderness, no rebound or guarding, no CVAT. Bilateral forearms without appreciable abnormality. concern for appendicitis vs diverticulitis vs colitis vs UTI. Rule out rhabdo. Low suspicion for compartment syndrome, cellulitis, ovarian torsion, renal stones/ pyelo Low suspicion for severe sepsis at this time Plan: Labs, UA, CT AP, re-evaluate Please refer to course for remaining clinical decision making, interpretation of labs/imaging results, and discussions with consultants and/or family members. Differential Diagnosis Differential Diagnoses: The differential diagnosis associated with the presentation includes As above Admission/Observation Consideration of admission/observation: Escalation of care including admission/observation considered Lab Data MDM Lab Attestation statement: I reviewed the patient's lab results. 11/11/24 15:39 11/11/24 15:39 Labs: Lab Results 11/11/24 Range/Units 15:39 WBC 6.3 (4.8-10.8) X10*3/uL RBC 4.76 (4.20-5.50) X10*6/uL Hgb 14.4 (12.0-16.0) g/dl Hct 40.5 (37.0-47.0) % MCV 85.1 (80.0-98.0) fL MCH 30.3 (27.0-33.0) pg MCHC 35.6 H (31.0-35.0) g/dl RDW 12.5 (11.0-16.0) % Plt Count 264 D (160-400) X10*3/uL MPV 11.7 (9.4-12.3) fL Immature Gran % (Auto) 0.3 (0.0-0.4) % Neut % (Auto) 60.6 (45-73) % Lymph % (Auto) 28.9 (20-40) % [place] % (Auto) 8.0 (2-11) % Eos % (Auto) 1.6 (0-4) % Baso % (Auto) 0.6 (0-2) % Lymph # (Auto) 1.8 (1.2-4.9) X10*3/uL [place] # (Auto) 0.5 (0.1-1.2) X10*3/uL Eos # (Auto) 0.1 (0.0-0.4) X10*3/uL Baso # (Auto) 0.0 (0.0-0.2) X10*3/uL Abs Immat Gran (auto) 0.02 (0.00-0.03) X10*3/uL Absolute Neuts (auto) 3.8 (2.0-8.3) x10*3/uL Absolute Nucleated RBC 0.000 (0.0-0.012) X10*3/uL Nucleated RBC % (auto) 0.0 (0.0-0.2) /100WBC Sodium 137 (135-145) mmol/L Potassium 4.0 (3.3-5.1) mmol/L Chloride 104 (96-108) mmol/L Carbon Dioxide 26 (22-29) mmol/L Anion Gap 11 L (12-20) BUN 12 (9-16) mg/dL Creatinine 0.71 (0.5-1.4) mg/dL Estim Creat Clear Calc 138.9 Estimated GFR > 60 Random Glucose 131 H (60-115) mg/dL Calcium 9.7 (8.4-10.2) mg/dL Magnesium 2.1 (1.6-2.6) mg/dL Total Bilirubin 0.5 (0.0-1.0) mg/dL AST 37 H (5-31) U/L ALT 40 H (0-31) U/L Alkaline Phosphatase 82 (39-117) U/L Total Creatine Kinase 88 (26-140) U/L Total Protein 8.1 H (6.5-8.0) g/dL Albumin 4.2 (3.5-5.0) g/dL Lipase 8 (8-78) U/L Beta HCG, Quant < 2 mIU/mL Urine Color Dark Yellow Urine Appearance Cloudy Urine pH 5.5 (5.0-9.0) Ur Specific [place] >= 1.030 H (1.005-1.025) Urine Protein 30 (1+) H (Neg-Trace) mg/dL Urine Glucose (UA) Negative (Negative) mg/dL Urine Ketones Trace (Negative) mg/dL Urine Blood Negative (Negative) Urine Nitrite Negative (Negative) Ur Leukocyte Esterase Small (1+) H (Negative) Urine RBC 0-2 (0-2) /HPF Urine WBC 6-10 (0-5) /HPF Ur Squamous Epith Cells 3-5 (0-2) /HPF Urine Bacteria 3+ (None Seen) Hyaline Casts 0-2 (0-2) /LPF Independent Interpretation I performed an independent interpretation of an: CT Scan Radiology Impression Discussion of test interpretation with radiology: I have reviewed the radiologist's reading. Independent Historian Clinical information obtained from an independent historian. History obtained from or confirmed by: Other ( grandparent) External Record Review External record reviewed: Inpatient record, Office record, Outpatient record, Prior outpatient labs, Prior outpatient radiology, Primary care record and Outside ED record Tests considered The following testing was considered but not selected: As above Prescription Management I considered prescription management with: Pain Medication Chronic Conditions Patient?s care impacted by: Diabetes and Other Social Determinants Patient?s care significantly limited by Social Determinants of Health including: Other Social Determinant of Health Discharge Plan Discharge Clinical Impression: UTI (urinary tract infection) Patient Disposition: Home, Self-Care Instructions: Urinary Tract Infection in Women (ED), Urinary Tract Infection in Women (DC) Additional Instructions: you have a urine infection. Ceftin is an antibiotic please take as prescribed Your blood work is reassuring Your CT scan was normal. Please have close follow up with your primary care doctor If her symptoms persist or worsen, pain becomes unbearable, you have persistent nausea/ vomiting or fever return to the ED Prescriptions: New cefuroxime axetil 250 mg tablet 250 mg PO BID 7 Days Qty: 14 0RF Referrals: Dashawn Morales MD [Primary Care Provider] - 5 days Print Language: Maltese
[2024-11-11 15:43] LABS: MANUAL DIFF FLAG NO
[2024-11-11 15:46] LABS: Appearance Urine Cloudy; Color Urine Dark Yellow; Glucose Urine UA Negative (Negative); Leukocyte Esterase Urine Small (1+) (Negative); Nitrite Urine Negative (Negative); PH 5.5 (5.0-9.0); Specific Gravity - Urine >= 1.030 (1.005-1.025); UMIC TRIGGER UACC YES; Urine Blood Negative (Negative); Urine Ketones Trace mg/dL (Negative); Urine Protein 30 (1+) mg/dL (Neg-Trace)
[2024-11-11 15:49] LABS: Basophils Percent Auto 0.6 % (0-2); Eosinophils Absolute Auto 0.1 X10*3/uL (0.0-0.4); Eosinophils Percent Auto 1.6 % (0-4); Hematocrit 40.5 % (37.0-47.0); Hemoglobin 14.4 g/dl (12.0-16.0); Imm Gran Abs Auto 0.02 X10*3/uL (0.00-0.03); Imm Gran Pct Auto 0.3 % (0.0-0.4); Lymphocytes Absolute Auto 1.8 X10*3/uL (1.2-4.9); Lymphocytes Percent Auto 28.9 % (20-40); Mean Corpuscular HGB Conc 35.6 g/dl (31.0-35.0); Mean Corpuscular Hemoglobin 30.3 pg (27.0-33.0); Mean Corpuscular Volume 85.1 fL (80.0-98.0); Mean Platelet Volume 11.7 fL (9.4-12.3); Monocytes Absolute Auto 0.5 X10*3/uL (0.1-1.2); Neutrophils Absolute Auto 3.8 x10*3/uL (2.0-8.3); Neutrophils Percent Auto 60.6 % (45-73); Platelet Count 264 X10*3/uL (160-400); Red Blood Count 4.76 X10*6/uL (4.20-5.50); Red Cell Distribution Width 12.5 % (11.0-16.0); White Blood Count 6.3 X10*3/uL (4.8-10.8)
[2024-11-11 15:54] LABS: Bacteria Urine 3+ (None Seen); Hyaline Casts Urine 0-2 /LPF (0-2); RBC Urine 0-2 /HPF (0-2); UACC Culture Trigger YES
[2024-11-11 16:13] LABS: Alanine Aminotransferase 40 U/L (0-31); Albumin Level 4.2 g/dL (3.5-5.0); Alkaline Phosphatase 82 U/L (39-117); Anion Gap 11 (12-20); Aspartate Amino Transferase 37 U/L (5-31); Bilirubin Total 0.5 mg/dL (0.0-1.0); Blood Urea Nitrogen 12 mg/dL (9-16); Calcium 9.7 mg/dL (8.4-10.2); Carbon Dioxide 26 mmol/L (22-29); Chloride 104 mmol/L (96-108); Creatinine Clr Calc Pharmacy 138.9; Estimated Glomerular Filt Rate > 60; Glucose Random 131 mg/dL (60-115); HCG Quantitative < 2 mIU/mL; Lipase 8 U/L (8-78); Magnesium 2.1 mg/dL (1.6-2.6); Sodium 137 mmol/L (135-145); Total Protein 8.1 g/dL (6.5-8.0)
[2024-11-11 17:30] VITALS: BP 142/64; PULSE 97; RESP 20; TEMP 36.8; O2SAT 98
[2024-11-11] MEDS: cefTRIAXone sodium 1 GM VIAL IVPUSH (17:30)
[2024-11-11] MEDS: LORazepam 1 MG TABLET PO (17:39)
--- OUTSIDE RECORDS SUMMARY | 2024-11-11 18:05 | XMS_ITS | Encounter Summary ---
Author Organization [facility] Address [address] [place] [address] Phone Care Team Providers Care Nipple Maker Name Role Phone Ramila Dior MD Primary Care Provider Encounter Details Date Type Department Care Team (Late st Contact Info) Description 12/02/2016 Documentation [facility] [place] [address] [place] [address] Family Medicine, Physician [address] [place], [place] [id number] Social History Tobacco Use Types Packs/Day Years Used Date Smoking Tobacco: Never Comments:Never smoker Comments Unknown Sex and Gender Information Value Date Recorded Sex Assigned at Not on file Legal Sex Female 5:16 PM EDT Gender Identity Not on file Sexual Orientation Not on file documented as of this encounter Plan of Treatment Not on file documented as of this encounter Visit Diagnoses Not on filedocumented in this encounter Care Teams Nipple Maker Relationship Specialty Start Date End Date Ramila Dior MD [address] [place] [address] KIRSTIN Stout [id number] PCP - General 03/07/17 documented as of this encounter
--- OUTSIDE RECORDS SUMMARY | 2024-11-11 18:05 | XMS_ITS | Encounter Summary ---
Author Organization [facility] Address [address] [place] [address] Phone Care Team Providers Care Melt Superintendant Name Role Phone Ramila Dior MD Primary Care Provider [phone] Encounter Details Date Type Department Care Team (Late st Contact Info) Description 03/03/2015 Documentation [facility] [address] [place] [address] Family Medicine, Physician [address] [place], [place] [phone] Social History Tobacco Use Types Packs/Day Years Used Date Smoking Tobacco: Never Assessed Comments Unknown Sex and Gender Information Value Date Recorded Sex Assigned at Not on file Legal Sex Female 5:16 PM EDT Gender Identity Not on file Sexual Orientation Not on file documented as of this encounter Plan of Treatment Not on file documented as of this encounter Visit Diagnoses Not on filedocumented in this encounter Care Teams Melt Superintendant Relationship Specialty Start Date End Date Ramila Dior MD [address] [place] [address] KIRSTIN Stout [id number] PCP - General 03/07/17 documented as of this encounter
--- OUTSIDE RECORDS SUMMARY | 2024-11-11 18:05 | XMS_ITS | Encounter Summary ---
Author Organization [facility] Address [address] [place] [address] Phone Care Team Providers Care Tufter Name Role Phone Ramila Dior MD Primary Care Provider [phone] Encounter Details Date Type Department Care Team (Late st Contact Info) Description 09/23/2012 [place] [facility] [place] [address] [place] [address] Family Medicine, Physician [address] [place], [place] [address] Social History Tobacco Use Types Packs/Day Years [...] on filedocumented in this encounter Care Teams Tufter Relationship Specialty Start Date End Date Ramila Dior MD [address] [place] [address] KIRSTIN Stout [id number] PCP - General 03/07/17 documented as of this encounter
--- OUTSIDE RECORDS SUMMARY | 2024-11-11 18:05 | XMS_ITS | Encounter Summary ---
Author Organization [facility] Address [address] [place] [address] Phone Care Team Providers Care Outpatient Facility Physical Therapist Name Role Phone Ramila Dior MD Primary Care Provider [phone] Encounter Details Date Type Department Care Team (Late st Contact Info) Description 11/22/2010 Documentation [facility] [address] [place] [address] Family Medicine, Physician [address] [place], [place] [id number] Social History Tobacco Use Types Packs/Day Years [...] on filedocumented in this encounter Care Teams Outpatient Facility Physical Therapist Relationship Specialty Start Date End Date Ramila Dior MD [address] [place] [address] KIRSTIN Stout [id number] PCP - General 03/07/17 documented as of this encounter
--- OUTSIDE RECORDS SUMMARY | 2024-11-11 18:05 | XMS_ITS | Encounter Summary ---
Author Organization [facility] Address [address] [place] [address] Phone Care Team Providers Care Application Security Specialist Name Role Phone Ramila Dior MD Primary Care Provider [phone] Encounter Details Date Type Department Care Team (Late st Contact Info) Description 06/28/2016 Documentation [facility] [address] [place] [address] Family Medicine, Physician [address] [place], [place] [address] Social History Tobacco Use Types Packs/Day Years [...] on filedocumented in this encounter Care Teams Application Security Specialist Relationship Specialty Start Date End Date Ramila Dior MD [address] [place] [address] KIRSTIN Stout [id number] PCP - General 03/07/17 documented as of this encounter
--- OUTSIDE RECORDS SUMMARY | 2024-11-11 18:05 | XMS_ITS | Clinical Summary ---
Author Organization [facility] Address [address] [place] [address] Phone Care Team Providers Care Press Hand Name Role Phone Ramila Dior MD Primary Care Provider [phone] Immunizations Immunization Administration Dates Next Due DTP 1995,1995,1995 DTaP 5 11/19/1999,12/29/1996 HPV, Quadrivalent 01/05/2010 Hep B, ped/adol 1995,1995,1995 Hib (PRP-T) 08/20/1996,199 6,1995, 995 IPV 03/11/2000, 6,1995, 995 MMR 03/11/2000,05/27/1996 Meningococcal Conj (Menactra) MCV4P 02/16/2007 Tdap 02/16/2007 Varicella 01/05/2010,05/23/1999 Family History Relation Name Status Comments Father Father: Asthma Maternal Grandfather Alive Materna l grandfather: Diabetes mellitus Mother Mother: Obesity , Polycystic ovarian syndrome Other Family history of Allergies, Family history of Cancer, throat, Family history of Diabetes mellitus, Family history of Stroke, Family history of arthritis, Family history of Hypertension, Family history of Obesity, Family history of Asthma Social History Tobacco Use Types Packs/Day Years Used Date Smoking Tobacco: Never Comments:Never smoker Comments Unknown Sex and Gender Information Value Date Recorded Sex Assigned at Not on file Legal Sex Female 5:16 PM EDT Gender Identity Not on file Sexual Orientation Not on file Last Filed Vital Signs Vital Sign Reading Time Taken Comments Blood Pressure 127/66 07/30/2016 12:00 AM EST Pulse 120 07/30/2016 12:00 AM EST Temperature 37.1 ??C (98.8 ??F) 06/26/2016 12:[address] Respiratory Rate - - Oxygen Saturation - - Inhaled Oxygen Concentration - - Weight 133 kg (294 lb) 07/30/2016 12:00 AM EST Height 154.9 cm (5' 1 ) 07/30/2016 12:00 AM EST Body Mass Index 55.55 07/30/2016 12:00 AM EST Plan of Treatment Health Maintenance Due Date Last Done Comments HPV Vaccines (2 - 2-dose series) 07/07/2010 01/05/2010 DTaP,Tdap,and Td Vaccines (7 - Td or Tdap) 02/16/2017 02/16/2007, 11/19/1999, 12/29/1996, Additional history exists Influenza Vaccines (#1) 2024 COVID-19 Vaccine ( season) 2024 Hepatitis B Vaccines Completed 1995, 1995, 1995 HIB Vaccines Completed 08/20/1996, 11/27, 1995, Additional history exists IPV Vaccines Completed 03/11/2000, 11/27, 1995, Additional history exists MMR Vaccines Completed 03/11/2000, 05/27/1996 Meningococcal Vaccine Aged Out 02/16/2007 No rosi nunu eligible based on patient's age to complete this topic Varicella Vaccines Completed 01/05/2010, 05/23/1999 Hepatitis A Vaccines Aged Out No long er eligible based on patient's age to complete this topic Men B Vaccine Aged Out No longer elig ible based on patient's age to complete this topic Pneumococcal Vaccine Aged Out No long er eligible based on patient's age to complete this topic Procedures * Due to [facility] law, this organization might not be sharing sensitive test results. Procedure Name Priority Date/Time Associated Diagnosis Comments CHLAMYDIA AND GONORRHEA, AMPLIFIED Routine 07/31/2016 2:15 PM EST from Last 3 Months or Most Recently Relevant to Health Maintenance Results * Due to [facility] law, this organization might not be sharing sensitive test results. * Chlamydia and Gonorrhoea, Amplified (07/31/2016 2:15 PM EST) URINE GC AMP PROBE NEGATIVE [facility] Comment: No Neisseria Gonorrhoeae RNA detected in this patient's sample (REFERENCE RANGE/NORMAL VALUE: NOT DETECTED) NOTE: This test uses configurator-mediated amplification method to detect rRNA from C.Trachomatis and N.Gonorrhoeae. A negative result does not preclude infection. In the case of a negative urine result, testing of an endocervical(female) or urethral(male) specimen is recommended if there is high clinical suspicion of infection. The performance characteristics of this test have not been evaluated in children. The Aptima Combo2 assay is not intended for the evaluation of suspected sexual abuse or for other medico-legal indications. The ordering provider should assess if the patient had consensual sex without risk of sexual abuse. Consult the [facility] if needed. Contact phone number . Therapeutic failure or success cannot be determined with the Aptima Combo2 assay since nucleic acid may persist following appropriate antimicrobial therapy. The Centers for Disease Control and Prevention (CDC) recommends confirmatory retesting using culture or a different nucleic acid amplification test when positive results occur, if indicated. Testing performed or reported by [facility], a Service of [facility], [facility] [place] [address] CLIA ??[id number] Ced Espino MD, PhD, Hand Sprayer URINE CHLAMYDIA AMP PROBE NEGATIVE [facility] Comment: No Chlamydia Trachomatis RNA detected in this patient's sample (REFERENCE RANGE/NORMAL VALUE: NOT DETECTED) 07/31/2016 2:15 PM EST Narrative [facility] - 07/31/2016 2:15 PM EST URINE CHLAMYDIA GC AMP PROBE us Susie Lorenzana [facility] - GENERAL OR DERABLES Final Result [facility] [address] [place] [address], from Last 3 Months or Most Recently Relevant to Health Maintenance Care Teams Press Hand Relationship Specialty Start Date End Date Ramila Dior MD [address] [place] [address] KIRSTIN Stout [id number] PCP - General 03/07/17
--- OUTSIDE RECORDS SUMMARY | 2024-11-11 18:05 | XMS_ITS | Encounter Summary ---
Author Organization [facility] Address [address] [place] [address] Phone Care Team Providers Care Professor Of Counseling Name Role Phone Ramila Dior MD Primary Care Provider [phone] Encounter Details Date Type Department Care Team (Late st Contact Info) Description 11/10/2012 [place]ation [facility] [place] [address] [place] [address] Family Medicine, Physician [address] [place], [place] [phone] Social History Tobacco Use Types Packs/Day Years [...] on filedocumented in this encounter Care Teams Professor Of Counseling Relationship Specialty Start Date End Date Ramila Dior MD [address] [place] [address] KIRSTIN Stout [phone] PCP - General 03/07/17 documented as of this encounter
--- OUTSIDE RECORDS SUMMARY | 2024-11-11 18:05 | XMS_ITS | Encounter Summary ---
Author Organization [facility] Address [address] [place] [address] Phone Care Team Providers Care Powder Coat Painter Name Role Phone Ramila Dior MD Primary Care Provider [phone] Encounter Details Date Type Department Care Team (Late st Contact Info) Description 03/13/2017 Conversion Encounter [facility] [place] [address] [place] [address] Social History Tobacco Use Types Packs/Day Years [...] on filedocumented in this encounter Care Teams Powder Coat Painter Relationship Specialty Start Date End Date Ramila Dior MD [address] [place] [address] PCP - General 03/07/17 documented as of this encounter
[2024-11-11] MEDS: iohexoL 350 MG/ML 100 ML INFUS..BTL IV (18:17)
[2024-11-11 20:06] VITALS: BP 142/64; PULSE 97; RESP 20; TEMP 36.8; O2SAT 98
== END 2024-11-11 20:07 | disposition home or self-care (01) ==
PROVIDERS: Physician Assistant; Registered Nurse Emergency; Emergency Provider Emergency Medicine; PCP Internal Medicine
DX: N39.0 Urinary tract infection, site not specified (principal); R10.32 Left lower quadrant pain; R10.31 Right lower quadrant pain; F32.A Depression, unspecified; E11.9 Type 2 diabetes mellitus without complications; F12.90 Cannabis use, unspecified, uncomplicated; E66.9 Obesity, unspecified; Z68.42 Body mass index [BMI] 45.0-49.9, adult
CPT/HCPCS: 36415; 74177; 80053; 81001; 82550; 83690; 83735; 84702; 85025; 87086; 96374; 99284; J0696; Q9967

== ENCOUNTER → 2024-11-11 16:45 | Outpatient (BNV) | payer OTHER, SELFPAY | PROVIDERS: Emergency Provider Emergency Medicine; PCP Internal Medicine; Visit Provider Radiology Diagnostic Radiology | DX: D35.02 Benign neoplasm of left adrenal gland (principal); K76.0 Fatty (change of) liver, not elsewhere classified | CPT/HCPCS: 74177 ==